=== PATIENT | female | born 1960 | race Caucasian/White ===

== ENCOUNTER → 2024-04-08 09:22 | Outpatient (REF) | payer OTHER, SELFPAY | LOC: RAD 09:22 | PROVIDERS: ATTENDING PHYSICIAN Internal Medicine Gastroenterology; FAMILY PHYSICIAN Family Medicine | DX: K50.812 Crohn's disease of both small and large intestine with intestinal obstruction (principal) | CPT/HCPCS: 74018 ==

== ENCOUNTER → 2024-04-25 16:22 | Outpatient (REF) | payer OTHER, SELFPAY | LOC: RAD 16:22 | PROVIDERS: ATTENDING PHYSICIAN Internal Medicine Gastroenterology; FAMILY PHYSICIAN Family Medicine | DX: K50.819 Crohn's disease of both small and large intestine with unspecified complications (principal); K91.2 Postsurgical malabsorption, not elsewhere classified | CPT/HCPCS: 74177; Q9967 ==

== ENCOUNTER 2024-06-13 13:18 | Inpatient (IN) | payer OTHER, SELFPAY ==
[2024-06-13] VITALS (9 sets, daily range): BP systolic 98–141; BP diastolic 63–86; BMI 23.0
--- NOTE | 2024-06-13 10:57 | ED.GENMED ---
History of Present Illness
General
Chief Complaint: Abnormal Lab Value
Source: patient
Exam Limitations: none
Time Seen by Provider: 06/13/24 10:43
Nursing documentation reviewed up to this point in time: agreed with
History of Present Illness
History of Present Illness:
64-year-old female past medical history of inflammatory bowel disease currently with ileostomy in place, indwelling right sided PICC line for fluid management presenting with concerns of low hemoglobin. Feels some general weakness fatigue that
slightly worse than usual. Stools been dark brown.F
Past History
Past History
ED Past Medical History: CAD, HTN, Other (Crohn's disease) and Other (Short gut syndrome)
ED Past Surgical History: Appendectomy, Bowel resection (In 1991 and 1995) and Other (Frequent ports, ileostomy surgery)
Social History
Tobacco: Non-smoker
Alcohol: Occasional
Drug: None
Personal:
Living: with family
Family History
Family History: Negative Diabetes, Hypertension, Early CAD, Asthma or Cancer
Review of Systems
Review of Systems
Allergies reviewed?: Yes
All Other Systems: ROS reviewed and negative except as documented in HPI and ROS
Phy Exam
Physical Exam
Physical Exam:
GENERAL: Alert , in no apparent distress
EYE: pupils equal and reactive
NECK: Supple, no significant adenopathy.
ENT: o/p clr, mmm.
CARDIAC: Regular rate and rhythm .
LUNGS: Clear breath sounds bilaterally, no acute respiratory distress, no wheezes/rales/rhonchi
ABDOMEN: Stool is dark brown guaiac positive, ileostomy in place to the left side of the abdomen no visible abnormalities of the surrounding area soft, without focal tenderness, no r/g, no cvat
NEUROLOGICAL: Alert and oriented, no focal neuro deficits
SKIN: Warm and dry, skin intact.
MUSCULOSKELETAL: No edema, well perfused.
PSYCH: Normal and appropriate interaction.
Course
Orders/Labs/Results
Orders:
Orders
06/13/24 10:49
Chest [CR Chest - 2 Views ] Urgent
Comment:
Reason For Exam: picc line rught arm
06/13/24 10:56
Type+Screen Urgent
Complete Blood Count/With Diff Urgent
Comprehensive Metabolic Panel Urgent
06/13/24 10:59
Pantoprazole [Protonix IV] 80 mg IV NOW STA
06/13/24 11:42
* Blood Bank Products Urgent
Blood Bank Products: *Packed RBC Leuko(PRBC's)
Quantity: 2
Transfuse Today: Yes
Reason: Anemia
Abnormal Lab Results
06/13/24
10:56
WBC 4.7 L 10^3/uL
(4.8-10.8)
RBC 3.17 L 10^6/uL
(4.20-5.40)
Hgb 5.8 L* g/dL
(12.0-16.0)
Hct 20.6 L* %
(37.0-47.0)
MCV 65.0 L fL
(81.0-99.0)
MCH 18.3 L pg
(27.0-31.0)
MCHC 28.2 L g/dL
(33.0-37.0)
RDW 16.1 H %
(11.5-14.5)
MPV 10.8 H fL
(7.4-10.4)
Chloride 108 H mmol/L
(98-107)
Glucose 103 H mg/dl
(70-99)
Calcium 8.3 L mg/dl
(8.4-10.2)
06/13/24 10:56
06/13/24 10:56
Vital Signs
Initial and Last Documented VS:
Initial Vital Signs
Temp Pulse Resp BP Pulse Ox
98.3 F 103 16 135/74 98
06/13/24 10:38 06/13/24 10:38 06/13/24 10:38 06/13/24 10:38 06/13/24 10:38
Last Documented Vital Signs
Temp Pulse Resp BP Pulse Ox
98.3 F 103 16 135/74 98
06/13/24 10:38 06/13/24 10:38 06/13/24 10:38 06/13/24 10:38 06/13/24 10:38
MDM/Problems Addressed
MDM/Problems Addressed:
64-year-old female presenting to the emergency department with concerns of low hemoglobin as an outpatient. Does of a history of inflammatory bowel disease. Here she has dark brown stool that is guaiac positive. She is not in any pain. Has some
vague generalized weakness and fatigue. No chest pain shortness of breath. Hemoglobin 5.8 here. Plan for 2 units of blood Protonix and admission for monitoring and assessment.
*Critical Care Note
Total Time (30-74mins, 75-104mins- exclusive of procedures): Not Applicable
ED Attending Note
-
Portions of this chart may have been created with voice recognition software.� Occasional wrong word or��sound alike� substitutions may have occurred due to the inherent limitations of voice recognition software.
Discharge Plan
Departure
Date of Disposition: 06/13/24
Time of Disposition: 11:47
Admit to: Med/Surg
Admit to doctor: Nehemias
Presentation/result/management discussed w/ accepting MD/DO: Hospitalist
Patient with high blood pressure during this ER visit?: No
Condition: Good
Covid-19: Not Applicable
Prescriptions:
No Action
omeprazole 20 MG capsule,delayed release(DR/EC)
40 mg PO BID
loratadine 10 MG tablet
10 mg PO DAILYPRN PRN (Reason: allergies)
multivitamin with folic acid [Tab-A-Shasha] 1 TABLET tablet
1 tab PO DAILY
loperamide 2 mg Tablet
2 mg PO QID
bupropion HCl [Wellbutrin] 100 mg Tablet
100 mg PO BID
calcium carbonate [Calcium 500] 500 mg calcium (1,250 mg) Tablet
500 mg PO DAILY
colestipol 1 gram Tablet
2 g PO TID
Interventions
Interventions:
*Risk Screen - Suicide Last Done: 06/13/24 10:38
*Neglect/Abuse Screening Last Done: 06/13/24 10:38
Discharge Date and Time
Print Language: MONEGASQUE
[2024-06-13 11:26] LABS: % Basophils 0.9 % (0-2); % Eosinophils 1.1 % (0-6); % Immature Granulocytes 0.2 % (0-0.5); % Lymphocytes 29.2 % (20.5-51.1); % Monocytes 9.2 % (1.7-9.3); % Neutrophils 59.4 % (42.2-75.2); ALT (SGPT) 17 U/L (0-35); AST (SGOT) 25 U/L (14-36); Absolute Eosinophils 0.1 10^3/uL (0-0.7); Absolute Lymphocytes 1.4 10^3/uL (1.2-3.4); Absolute Monocytes 0.4 10^3/uL (0.1-0.6); Absolute Neutrophils 2.8 10^3/uL (1.4-6.5); Albumin 3.6 g/dl (3.5-5.0); Alkaline Phosphatase 108 U/L (38-126); Blood Urea Nitrogen 11 mg/dl (7-17); Calcium 8.3 mg/dl (8.4-10.2); Carbon Dioxide 25 mmol/L (22-30); Chloride 108 mmol/L (98-107); Glucose 103 mg/dl (70-99); Hematocrit 20.6 % (37.0-47.0); Hemoglobin 5.8 g/dL (12.0-16.0); Mean Corp Hgb Conc. 28.2 g/dL (33.0-37.0); Mean Corpuscular Hgb 18.3 pg (27.0-31.0); Mean Platelet Volume 10.8 fL (7.4-10.4); Nucleated Red Blood Cells % 0 %; Platelet Count 305 10^3/uL (130-400); Potassium 4.3 mmol/L (3.5-5.1); Red Blood Cell Count 3.17 10^6/uL (4.20-5.40); Red Cell Dist. Width 16.1 % (11.5-14.5); Sodium 140 mmol/L (135-145); Total Bilirubin 0.4 mg/dl (0.2-1.3); Total Protein 7.2 g/dl (6.3-8.2); White Blood Cell Count 4.7 10^3/uL (4.8-10.8); eGFR > 60.00
[2024-06-13] MEDS: PROTONIX IV 80 MG IV (11:36)
--- NOTE | 2024-06-13 12:13 | HPS.HSE ---
Family Physician
-
Family Physician: Jasbir Guillaume
Chief Complaint
-
Weakness
History of Present Illness
Patient is 64 y/o female past medical history of Crohn's Disease with ileostomy who presents with weakness and low hemoglobin. Patient reports weakness, fatigue and increasing dyspnea on exertion for the past week. She get regular IVFs due to high
output ileostomy, and blood work revealed low hemoglobin. Patient reports output from ostomy has been darker than usual over the past week. She denies chest pains or dizziness.
Medical History
Past Medical History
Past Medical History: Reports Other
Additional Past Medical History:
Crohn's Disease
Short Bowel Syndrome
High Output Ostomy
Iron Deficiency Anemia
Past Surgical History: Reports Other
Additional Past Surgical History:
Total Colectomy with Ileostomy
Small Bowel Resection
Social History
Tobacco: Non-smoker
Alcohol: None
Family History
Family History: Not pertinent
Allergies / Home Medications
Allergies reflects when Allergies were last updated in [facility].
Home Medications with original date entered in [facility]
Allergy/Medication List:
Allergies
Allergy/AdvReac Type Severity Reaction Status Date / Time
No Known Allergies Allergy Verified 06/13/24 10:40
Home Medications
omeprazole 20 mg capsule,delayed release 40 mg PO BID Gastrointestinal issue 11/03/08
loratadine 10 mg tablet 10 mg PO DAILYPRN PRN allergies 01/10/19
multivitamin with folic acid 400 mcg tablet (Tab-A-Shasha) 1 tab PO DAILY Supplement 09/19/21
bupropion HCl 100 mg tablet 100 mg PO BID 06/13/24
calcium carbonate 500 mg PO DAILY 06/13/24
colestipol 1 gram tablet 2 g PO TID 06/13/24
loperamide 2 mg tablet 2 mg PO QID 06/13/24
Review of Systems
-
A 12 point ROS was completed and negative except as noted: Yes
Constitutional: Denies Fever or Chills
Respiratory: Reports Trouble Breathing; Denies Cough
Cardiac: Denies Chest Pain or Palpitations
Abdomen/GI: Reports Black Stools; Denies Abdominal Pain, Nausea or Vomiting
Physical Exam
Vital Signs
Vital Signs
Temp Pulse Resp BP Pulse Ox
97.9 F 88 20 117/86 99
06/13/24 11:51 06/13/24 11:51 06/13/24 11:51 06/13/24 11:51 06/13/24 11:51
Physical Exam
General: Comfortable, Conversant and Other (Appear slightly pale)
HEENT: NormoCephalic and Anicteric
Respiratory: Clear and Non Labored Respirations
Cardiac: S1/S2 and Regular Rhythm
GI: Soft, Non Tender and Ostomy
Rectal: Other (Heme-Positive output from ileostomy)
Musculoskeletal: No Clubbing, No Cyanosis and No Edema
Skin: Warm and Dry
Neuro: Awake, Alert, Oriented and Nonfocal/grossly intact
Psych: Calm
Laboratory Results
-
06/13/24 10:56
06/13/24 10:56
Laboratory Results
Total Bilirubin 0.4 mg/dl (0.2-1.3) 06/13/24 10:56
AST 25 U/L (14-36) 06/13/24 10:56
ALT 17 U/L (0-35) 06/13/24 10:56
Alkaline Phosphatase 108 U/L (38-126) 06/13/24 10:56
Data Reviewed
-
Lab Data: Labs Reviewed by me
Impression/Plan
-
Acute Blood Loss Anemia secondary to GI Bleed
-Check iron studies
-Transfuse 2 units PRBCs
-Trend serial Hgb
GI Bleed, likely upper in nature
-Consult GI
-Continue NPO/IVFs
-Continue Protonix 40mg IV BID
Crohn' Disease s/p Total Colectomy with Ileostomy, and Small Bowel Resection
Short Gut Syndrome with High Output Ostomy
-Monitor volume status - Patient received 2L NSS Daily via PICC as outpatient
-Hold colestipol and loperamide
DVT proph: SCDs
Code Status: Full Code
--- NOTE | 2024-06-13 12:44 | W.PN.UPDATE ---
Update Note
Progress Note Update
This is an addendum to the H&P written by Flaca Barbosa on 06/13/2024.� Patient seen and examined independently with PA.
64-year-old female past medical history of Crohn's disease status post ileostomy, short-bowel syndrome with high output ostomy with PICC line for 2 L IV fluids daily, history of food impaction, psoriasis, presenting with low hemoglobin.� Generalized
fatigue.� Dark brown stool.
EGD and colonoscopy from 2022 showed changes suggesting eosinophilic esophagitis but biopsy negative.� Later had a capsule endoscopy with the capsule still inside her.�
Hemoglobin of 5.8. Stools heme positive.
Concern for upper GI bleeding secondary to Crohn's disease with ileocolonic involvement previously.� 2 units of blood.� Protonix twice daily.� IV fluids.� Check iron studies, B12 and folate.� NPO.� GI consulted.
[2024-06-13] MEDS: NSS 500 IV (12:46)
[2024-06-13 14:41] LABS: Iron 24 ug/dl (37-170)
[2024-06-13 14:51] LABS: Percent Saturation 5 % (20-50); Total Iron Binding Capacity 435 ug/dl (265-497)
--- NOTE | 2024-06-13 15:32 | CON.GI ---
Addendum entered and electronically signed by Mesha Turcios MD 06/13/24 21:17:
I saw and examined the patient.
The RESIDENTIAL LEASING AGENT or PA's note was reviewed and I agree with the note.
Comment: 70-year-old female with history of Crohn's disease of small and large bowel for several years, has had multiple of abdominal surgeries with bowel resections, has had total proctocolectomy with ileostomy in 1991 and history of possible short
gut and gets IV hydration every night presenting with increasing shortness of breath and fatigue. She did report that her ostomy output was slightly darker but not black or red. She follows up with Dr. Taylor as an outpatient. She was noted to have
iron deficiency anemia in 2022, upper endoscopy at that time showed gastritis with active inflammation but otherwise no evidence of bleeding and ileoscopy did not show any evidence of active inflammation either. She did have small bowel capsule
study September 2023 with capsule retention, also noted on imaging in March 2024. She was noted to have iron deficiency since March 2024, has been on omeprazole 40 mg twice a day. No regular NSAID use. No evidence of active Crohn's and currently
not on any treatment.
Denies any abdominal pain, nausea or vomiting. No heartburn or trouble swallowing. She empties ileostomy 3-4 times a day and has not seen excessive output recently. She also has an appointment with Dr. Duque from [facility] this coming to
discuss regarding double-balloon enteroscopy to get the retained small bowel capsule out.
In the emergency room, hemoglobin noted to be 5.8 with microcytic indices, down from 8.5 in March.
-Iron deficiency anemia without overt bleeding but possibly slow chronic bleeding with history of underlying small bowel and large bowel Crohn's.
Getting 2 units of packed red blood cells. Monitor H&H and transfuse if needed if less than 7.0.
Continue IV PPI.
Given significant drop in hemoglobin, consider EGD/ileostomy Sunday. Patient does not want to wait in the hospital for that and wanted to see if this can be done as an outpatient. Will check schedule and contact patient regarding that.
Will give IV iron in the hospital.
Original Note:
Consultation
-
Date/Time Consultation Requested: 06/13/24 1229
Date/Time Consultation Performed: 06/13/24 1510
Requesting Provider: Flaca Vincent PA-C
Performing Provider: Dr. Turcios / Sapphire Whitt PA-C
Reason for Consultation: heme positive stools/acute blood loss anemia
Medical History
Chief Complaint / HPI
Chief Complaint: fatigue
History of Present Illness:
Ila is a 64 year old female with a past medical history of Crohn's of the small and large bowel (diagnosed in childhood, s/p multiple bowel resections and ultimately proctocolectomy in 1991, not currently on treatment) with permanent ileostomy,
with concern for short gut syndrome/high ostomy outputs on home IV fluids via PICC line who presented to the ER with outpatient labs showing severely low hemoglobin (5.8). She does complain of fatigue and increasing shortness of breath. She denies
any chest pain or abdominal pain. She does note that the ostomy output has been darker -- but denies black/tarry appearance, states it was more of a 'sheth' color. No mark blood. She took Advil once last week for backache but otherwise denies NSAID
use.
Patient is well-known to our GI practice and just saw Dr. Taylor recently in the office on 05/28/24. Patient had a video capsule endoscopy placed in September 2023 but the capsule did not pass, which was confirmed on imaging (both x-ray and CT scan). The CT
scan showed retained capsule, possibly broken into 3 pieces. Patient was then referred to Dr. Duque at [facility] for double enteroscopy to retrieve the capsule, and patient has consultation scheduled with him next week, 06/19. She has denied any
abdominal pain this whole time and continues to deny pain. No fever, chills, nausea, vomiting. Of note, patient did have a new microcytic anemia with Hgb noted to be 8.5 in March. Patient had EGD and enteroscopy with Dr. Taylor 12/2022, which was
negative, no active disease. Serum iron and %sat low. Normal TIBC and ferritin still pending.
Past Medical History
Past Medical History: GERD and Other (Crohn's of the small and large bowel (diagnosed in childhood, s/p multiple bowel resections and proctocolectomy in 1991, not currently on treatment) with permanent ileostomy, with concern for short gut
syndrome/high ostomy outputs)
Past Surgical History: Appendectomy and Bowel Resection (total colectomy with ileostomy)
Social History
Tobacco: Non-Smoker
Alcohol: None
Drug: None
Family History
Family History: Other (No family history of GI malignancies)
Allergies / Home Medications
Allergy/AdvReac Type Severity Reaction Status Date / Time
No Known Allergies Allergy Verified 06/13/24 10:40
�Medication �Instructions �Recorded
omeprazole 20 mg capsule,delayed 40 mg PO BID Gastrointestinal issue 11/03/08
release
loratadine 10 mg tablet 10 mg PO DAILYPRN PRN allergies 01/10/19
multivitamin with folic acid 400 1 tab PO DAILY Supplement 09/19/21
mcg tablet (Tab-A-Shasha)
bupropion HCl 100 mg tablet 100 mg PO BID 06/13/24
calcium carbonate 500 mg PO DAILY 06/13/24
colestipol 1 gram tablet 2 g PO TID 06/13/24
loperamide 2 mg tablet 2 mg PO QID 06/13/24
Review of Systems
-
History Source: Patient
All other systems: A 12 pt ROS was Negative except as stated above in HPI
Vital Signs
Temp Pulse Resp BP Pulse Ox
98.1 F 87 18 98/75 100
06/13/24 14:58 06/13/24 14:58 06/13/24 14:58 06/13/24 14:58 06/13/24 14:58
Physical Exam
Exam
General: Well Developed, Well Nourished and No Apparent Distress
Respiratory: Clear
Cardiac: Regular Rhythm
GI: Soft, Non Tender, Non Distended, Normal Bowel Sounds and Other (left-sided ostomy (heme positive dark brown stool))
Skin: Warm and Dry
Neuro: AO x 3
Psych: Calm
Results
WBC 4.7 10^3/uL (4.8-10.8) L 06/13/24 10:56
Hgb 5.8 g/dL (12.0-16.0) L* 06/13/24 10:56
Hct 20.6 % (37.0-47.0) L* 06/13/24 10:56
MCV 65.0 fL (81.0-99.0) L 06/13/24 10:56
Plt Count 305 10^3/uL (130-400) 06/13/24 10:56
Absolute Neuts (auto) 2.8 10^3/uL (1.4-6.5) 06/13/24 10:56
Sodium 140 mmol/L (135-145) 06/13/24 10:56
Potassium 4.3 mmol/L (3.5-5.1) 06/13/24 10:56
Chloride 108 mmol/L (98-107) H 06/13/24 10:56
Carbon Dioxide 25 mmol/L (22-30) 06/13/24 10:56
BUN 11 mg/dl (7-17) 06/13/24 10:56
Creatinine 0.7 mg/dL (0.6-1.0) 06/13/24 10:56
Calcium 8.3 mg/dl (8.4-10.2) L 06/13/24 10:56
Total Bilirubin 0.4 mg/dl (0.2-1.3) 06/13/24 10:56
AST 25 U/L (14-36) 06/13/24 10:56
ALT 17 U/L (0-35) 06/13/24 10:56
Alkaline Phosphatase 108 U/L (38-126) 06/13/24 10:56
Diagnostic Image Results:
04/25/24 CT abdomen/pelvis:
-Patient with Crohn's disease and history of multiple previous surgeries. There are dilated and nondilated loops of bowel present, with an ileostomy. There is extension of oral contrast through the ileostomy, with no evidence for high-grade
obstruction.
-No evidence of free intraperitoneal air.
-Streak artifact from 3 metallic densities within the central and left paramedian pelvis, unchanged from abdominal radiograph of April 08, 2024, and likely retained metallic fragments from capsule endoscopy camera.
Prior GI Procedures:
EGD: 12/2022: Dr Taylor
Esophageal mucosal changes suggestive of
eosinophilic esophagitis.
- Erythematous mucosa in the antrum.
- Bilious gastric fluid.
- A few gastric polyps. Resected and retrieved.
- Normal examined duodenum
(biopsies negative for EoE or celiac. +chronic active gastritis)
Colonoscopy: 12/2022: Dr Taylor
The entire examined ileum appeared normal. Biopsies were taken with a
cold forceps for histology. There was evidence of a widely patent end ileostomy found in the
surgical anastomosis. This was characterized by healthy appearing mucosa.
(small bowel biopsies negative)
Assessment / Plan
-
64 year old female with Crohn's of the small and large bowel s/p total colectomy with permanent ileostomy, with concern for short gut syndrome/high ostomy outputs on home IV fluids via PICC line who presented to the ER with outpatient labs showing
severely low hemoglobin (5.8) and symptoms of fatigue, weakness, dyspnea. Patient has a retained video capsule endoscopy (originally placed September 2023 and did not pass) with CT suggestive that the capsule possibly broke into 3 pieces. Patient has
follow-up scheduled next week with Dr. Duque at [facility] for double enteroscopy to retrieve the capsule, 06/19. She has no abdominal pain at all. No fever, chills, nausea, vomiting. Of note, patient did have a new microcytic anemia with Hgb noted to
be 8.5 in March. Patient had EGD and enteroscopy with Dr. Taylor 12/2022, which was negative, no active disease. She does note darker outputs, which are dark brown and heme positive. She received transfusion with 2 units PRBCs and has remained
hemodynamically stable.
IMPRESSION / PLAN:
Acute Blood Loss Anemia / heme-positive output
- Hgb on admission 5.8 (down from 8.5 in March), s/p transfusion 2 units PRBCs
- trend Hgb (repeat pending)
- transfuse if Hgb falls below 7
- continue IV fluids
- continue IV PPI
- consider endoscopy -- to discuss further with Dr. Turcios
Retained video capsule foreign body
- confirmed on imaging and concern the capsule may have fragmented
- patient has no abdominal discomfort
- scheduled for consultation with Dr. Duque ([facility]) for double balloon enteroscopy next week, 06/19
- to discuss further management with Dr. Turcios. Possibly expedite the DBE for retrieval of the capsule with Dr. Duque.
Crohn's s/p total colectomy with ileostomy
- h/o high outputs, concern for short gut syndrome
- continue IV fluids
We will follow.
-
-
Thank you for consultation and allowing me to participate in the patient's care. Please call the solar installation crew supervisor GI physician during the after hours with any questions or concerns.
[2024-06-13 17:03] LABS: Ferritin 4.2 ng/ml (11.1-264.0)
[2024-06-13 17:35] LABS: Folate 9.9 ng/ml (2.76-20); Vitamin B12 224 pg/ml (239-931)
--- NOTE | 2024-06-13 21:00 | PTCARENOTE ---
Pt. receiving 2nd unit PRBC's, pt. resting in bed, vs stable, call saxena within reach.
[2024-06-13] MEDS: PROTONIX IV 40 MG IV (23:12)
[2024-06-13] MEDS: WELLBUTRIN REGULAR RELEASE 100 MG PO (23:12)
[2024-06-14 01:39] LABS: Hematocrit 25.8 % (37.0-47.0)
[2024-06-14] MEDS: NSS 1000 IV ×2 (04:58→08:04)
[2024-06-14 05:58] LABS: Hematocrit 26.6 % (37.0-47.0); Hemoglobin 8.1 g/dL (12.0-16.0); Mean Corp Hgb Conc. 30.5 g/dL (33.0-37.0); Mean Corpuscular Hgb 21.8 pg (27.0-31.0); Mean Corpuscular Volume 71.5 fL (81.0-99.0); Mean Platelet Volume 10.7 fL (7.4-10.4); Platelet Count 245 10^3/uL (130-400); Red Blood Cell Count 3.72 10^6/uL (4.20-5.40); Red Cell Dist. Width 20.7 % (11.5-14.5); White Blood Cell Count 3.1 10^3/uL (4.8-10.8)
[2024-06-14 06:26] LABS: Blood Urea Nitrogen 10 mg/dl (7-17); Calcium 8.2 mg/dl (8.4-10.2); Carbon Dioxide 25 mmol/L (22-30); Chloride 104 mmol/L (98-107); Estimated Creatinine Clearance 55 ml/min; Glucose 82 mg/dl (70-99); Potassium 4.3 mmol/L (3.5-5.1); Sodium 137 mmol/L (135-145); eGFR > 60.00
--- NOTE | 2024-06-14 07:07 | W.PN.HOSP.TC ---
Today's Communication/Plan
-
see a/p
Assessment / Plan
Assessment / Plan
Physical Exam
General: no acute distress appears comfortable at this time
HEENT: NormoCephalic and Anicteric
Respiratory: Clear and Non Labored Respirations
Cardiac: S1/S2 and Regular Rhythm
GI: Soft, Non Tender and Ostomy
Musculoskeletal: No Clubbing, No Cyanosis and No Edema
Skin: Pallor
Neuro: AOx3 conversant coherent
Psych: Calm
64-year-old female past medical history of Crohn's disease status post ileostomy, short-bowel syndrome with high output ostomy with PICC line for 2 L IV fluids daily, history of food impaction, psoriasis, presenting with severe anemia Hgb 5.8.
Acute vs Chronic Blood Loss Anemia secondary to GI Bleed
-Iron studies appreciated Iron Deficiency Anemia, Iron supplementation provided
-Transfused 2 units PRBCs, responded well
-monitor H&H, hgb stable consistently 8 range since transfusion
-B12 deficiency noted, supplementation started.
-Continue Protonix 40mg IV BID
-GI consult appreciated NPO for EGD/ileoscopy
Crohn' Disease s/p Total Colectomy with Ileostomy, and Small Bowel Resection
Short Gut Syndrome with High Output Ostomy
-Monitor volume status - Patient received 2L NSS Daily via PICC as outpatient
-Hold colestipol and loperamide
DVT proph: SCDs
Code Status: Full Code
I spent a total of 50 minutes with the patient or on the floor. More than 50% of this time involved counseling and coordination of care.
Anticipated Discharge: 24 - 48 hours
Subjective/Interval History
-
Date of Service: June 14, 2024
No acute distress sitting up comfortably in bed. Overall reports feeling well. NPO awaiting Endoscopy/Ileoscopy
Objective Data
-
Labs:
Laboratory Results
06/13/24 06/14/2406/14/25
20:00 01:29 04:00
WBC
Hgb Cancelled 8.0 L D Cancelled
Hct Cancelled 25.8 L Cancelled
Plt Count
Sodium
Potassium
Chloride
Carbon Dioxide
BUN
Creatinine
Glucose
Calcium
06/14/24 06/14/24
05:37 09:30
WBC 3.1 L
Hgb 8.1 L Pending
Hct 26.6 L Pending
Plt Count 245
Sodium 137
Potassium 4.3
Chloride 104
Carbon Dioxide 25
BUN 10
Creatinine 0.8
Glucose 82
Calcium 8.2 L
Vital Signs:
Vital Signs
Temp Pulse Resp BP Pulse Ox
98.4 F 65 18 116/63 96
06/13/24 23:02 06/13/24 23:02 06/13/24 23:02 06/13/24 23:02 06/13/24 23:02
I&O
06/13/24 06/14/24 06/15/24
06:59 06:59 06:59
Intake Total 250 / 250
Balance 250 / 250
[2024-06-14 07:58] VITALS: BP 138/79
[2024-06-14] MEDS: WELLBUTRIN REGULAR RELEASE PO (07:59)
[2024-06-14] MEDS: PROTONIX IV 40 MG IV ×2 (08:00→19:52)
[2024-06-14] MEDS: NSS (PRESERVATIVE FREE) 10 ML IV ×2 (08:24→19:52)
[2024-06-14 12:18] VITALS: BP 132/62
[2024-06-14 12:34] LABS: Hemoglobin 8.3 g/dL (12.0-16.0)
[2024-06-14 12:54] VITALS: BP 127/72
[2024-06-14 13:56] VITALS: BP 127/68
[2024-06-14] MEDS: FERRLECIT 110 MG IV (15:01)
[2024-06-14 15:25] VITALS: BP 124/69
[2024-06-14] MEDS: VITAMIN B-12 1000 MCG PO (17:19)
[2024-06-14] MEDS: WELLBUTRIN REGULAR RELEASE 100 MG PO (19:50)
[2024-06-14] MEDS: NSS IV (19:55)
[2024-06-14 23:06] VITALS: BP 117/63
[2024-06-15 06:00] VITALS: BMI 22.9
[2024-06-15 06:30] LABS: Hematocrit 34.7 % (37.0-47.0); Hemoglobin 10.2 g/dL (12.0-16.0); Mean Corp Hgb Conc. 29.4 g/dL (33.0-37.0); Mean Corpuscular Hgb 21.3 pg (27.0-31.0); Mean Corpuscular Volume 72.4 fL (81.0-99.0); Mean Platelet Volume 10.7 fL (7.4-10.4); Platelet Count 332 10^3/uL (130-400); Red Blood Cell Count 4.79 10^6/uL (4.20-5.40); Red Cell Dist. Width 21.6 % (11.5-14.5); White Blood Cell Count 7.1 10^3/uL (4.8-10.8)
--- NOTE | 2024-06-15 06:41 | W.PN.HOSP.TC ---
Today's Communication/Plan
-
discharge
Assessment / Plan
Assessment / Plan
Physical Exam
General: no acute distress appears comfortable at this time
HEENT: NormoCephalic and Anicteric
Respiratory: Clear and Non Labored Respirations
Cardiac: S1/S2 and Regular Rhythm
GI: Soft, Non Tender, Ostomy present
Musculoskeletal: No Clubbing, No Cyanosis and No Edema
Skin: Pallor
Neuro: AOx3 conversant coherent
Psych: Calm
64-year-old female past medical history of Crohn's disease status post ileostomy, short-bowel syndrome with high output ostomy with PICC line for 2 L IV fluids daily, history of food impaction, psoriasis, presenting with severe anemia Hgb 5.8.
Acute vs Chronic Blood Loss Anemia secondary to GI Bleed
-Iron studies appreciated Iron Deficiency Anemia, Iron supplementation provided
-Transfused 2 units PRBCs, responded well
-monitor H&H, hgb stable consistently 8 range since transfusion
-B12 deficiency noted, supplementation started.
-Continue Protonix 40mg IV BID
-GI consult appreciated s/p EGD/ileoscopy no etiology for anemia found
-Hgb continues to improve
-Outpt Hematology Follow up recommended.
Crohn' Disease s/p Total Colectomy with Ileostomy, and Small Bowel Resection
Short Gut Syndrome with High Output Ostomy
-Monitor volume status - Patient received 2L NSS Daily via PICC as outpatient
-Hold colestipol and loperamide, ok to resume on discharge
Mild hyperkalemia
Mild Metabolic Acidosis
Mild Cr elevation/BOLA Cr 1.1, increased from 0.7 on admission
Hyperphosphatemia
-repeat labwork with primary care provider in 1 week of discharge recommended
DVT proph: SCDs
Code Status: Full Code
Stable for discharge home with outpatient follow up recommendations.
Total Time Preparing Discharge __40 minutes including examination of the patient, summary of the hospital stay, instructions for continuing care to all relevant caregivers; and preparation of discharge records, prescriptions, and referral
forms if necessary.
Anticipated Discharge: Today
Subjective/Interval History
-
Date of Service: June 15, 2024
No acute distress. Reports overall feeling well. Denies new acute issues. Looking forward to going home.
Objective Data
-
Labs:
Laboratory Results
06/15/24
05:50
WBC 7.1
Hgb 10.2 L D
Hct 34.7 L
Plt Count 332 D
Sodium Pending
Potassium Pending
Chloride Pending
Carbon Dioxide Pending
BUN Pending
Creatinine Pending
Glucose Pending
Calcium Pending
Vital Signs:
Vital Signs
Temp Pulse Resp BP Pulse Ox
98.4 F 72 16 117/63 95
06/14/24 23:06 06/14/24 23:06 06/14/24 23:06 06/14/24 23:06 06/14/24 23:06
I&O
06/13/24 06/14/24 06/15/24
06:59 06:59 06:59
Intake Total 250 / 250 1440 / 1440
Balance 250 / 250 1440 / 1440
[2024-06-15 06:45] LABS: Blood Urea Nitrogen 14 mg/dl (7-17); Calcium 9.5 mg/dl (8.4-10.2); Carbon Dioxide 15 mmol/L (22-30); Chloride 112 mmol/L (98-107); Estimated Creatinine Clearance 40 ml/min; Glucose 107 mg/dl (70-99); Magnesium 1.8 mg/dl (1.6-2.3); Potassium 5.3 mmol/L (3.5-5.1); Sodium 139 mmol/L (135-145); eGFR 56.81
[2024-06-15 07:04] VITALS: BP 96/70
--- NOTE | 2024-06-15 09:09 | CM ---
Addendum entered by Daniela Fonseca 06/15/24 13:58:
IMM benefit explained; form signed
Addendum entered by Daniela Fonseca 06/15/24 13:01:
Plan: Discharge to home today; will transport
Original Note:
Initial assessment completed
Pharmacy verified: [facility] @ [address] [place] [address]
Lives with and 2 adult children in [place] w/basement; 3 steps to enter; bath has stall shower
PLOF: independent with ambulation, ADLs; drives; retired
NO SNF utilization history
[facility] for IV therapy; PICC line RUE
DME: ileostomy supplies
will transport home
Plan: discharge to home when medically stable; CM will monitor for discharge needs
--- NOTE | 2024-06-15 09:30 | PTCARENOTE ---
Patient independently cares for her ileostomy. Ostomy stool drainage is contained within an opaque colored pouch. Patient verbalizes she has been emptying her ostomy directly into the toilet during her hospital stay. Instructed patient to report
ostomy drainage to nursing.
[2024-06-15] MEDS: VITAMIN B-12 1000 MCG PO (09:33)
[2024-06-15] MEDS: WELLBUTRIN REGULAR RELEASE 100 MG PO (09:33)
[2024-06-15] MEDS: PROTONIX IV 40 MG IV (09:33)
[2024-06-15] MEDS: NSS (PRESERVATIVE FREE) 10 ML IV (09:33)
[2024-06-15] MEDS: FLUSH (NSS) 2 FLUSH IV (09:39)
--- NOTE | 2024-06-15 12:33 | W.DCSUMMARY ---
Discharge Summary
Discharge Data
Date of Admission: 06/13/24
Date of Discharge: 06/15/24
-
Pending Results: Yes
Additional Pending Results:
biopsy results to be followed up with GI
Discharge Plan
-
Patient Disposition: Home (Routine Discharge)
Discharge Diagnosis/Procedures: Acute on Chronic Anemia Unclear Etiology
Iron deficiency anemia
Vitamin B12 deficiency anemia
Crohn's disease status post colectomy ileostomy
Mild Hyperkalemia
Mild Metabolic Acidosis
Mild Acute Kidney Injury
Hyperphosphatemia
Condition: Fair
Diet: Regular
Activity: As tolerated
Driving Restrictions: As prior to admission
Bathing Restrictions: None
Blood Work: Repeat CBC BMP Phosphorus level with primary care provider in 1 week of discharge.
Activity Restrictions/Additional Instructions:
Keep your appointment with GI Dr Duque and follow up with primary care provider in 1 week of discharge. Follow up with Hematology in 2-4 weeks of discharge.
Supplementations have been prescribed for Vitamin B12 and Iron Deficiencies
Please take medications as prescribed/recommended and follow up with primary care provider and/or other healthcare provider involved in your care for refills and/or further adjustment to your medication regimen as necessary.
Referrals:
Freddy Obrien, DO [Active] - in two to four weeks
Jasbir Guillaume DO [Family Provider] - in one week
Prescriptions:
New
cyanocobalamin (vitamin B-12) [Vitamin B-12] 1,000 mcg Tablet
1,000 mcg PO DAILY Qty: 30 0RF
ferrous sulfate 325 mg (65 mg iron) tablet
325 mg PO DAILY Qty: 30 0RF
Continued
omeprazole 20 MG capsule,delayed release(DR/EC)
40 mg PO BID
loratadine 10 MG tablet
10 mg PO DAILYPRN PRN (Reason: allergies)
multivitamin with folic acid [Tab-A-Shasha] 1 TABLET tablet
1 tab PO DAILY
loperamide 2 mg Tablet
2 mg PO QID
bupropion HCl 100 mg Tablet
100 mg PO BID
calcium carbonate 500 mg calcium (1,250 mg) Tablet
500 mg PO DAILY
colestipol 1 gram Tablet
2 g PO TID
Discharge Orders:
Discharge Patient (As Directed); Ordered 06/15/24
Ordered By: Fernandez López
Discharge Date and Time
Print Language: GABONESE
--- NOTE | 2024-06-15 12:45 | W.PN.GI.CBS2 ---
Today's Communication / Plan
-
Acute Blood Loss Anemia / heme-positive output
- Hgb on admission 5.8 (down from 8.5 in March), s/p transfusion 2 units PRBCs
-Upper endoscopy and ileoscopy without any evidence of active bleeding or stigmata of bleeding.
Hemoglobin stable and currently getting IV iron. Continue Protonix 40 mg p.o. twice a day
-She gets heme checks every 2 weeks and follows up with Dr. Wilkins, would continue to do that.
Retained video capsule foreign body
- confirmed on imaging and concern the capsule may have fragmented
- patient has no abdominal discomfort
- scheduled for consultation with Dr. Duque ([place]) for double balloon enteroscopy next week, 06/19. Suggest keeping the appointment.
Crohn's s/p total colectomy with ileostomy
- h/o high outputs, concern for short gut syndrome
- continue outpatient nightly IV fluids
Okay to discharge
Assessment / Plan
-
64 year old female with Crohn's of the small and large bowel s/p total colectomy with permanent ileostomy, with concern for short gut syndrome/high ostomy outputs on home IV fluids via PICC line who presented to the ER with outpatient labs showing
severely low hemoglobin (5.8) and symptoms of fatigue, weakness, dyspnea. Patient has a retained video capsule endoscopy (originally placed September 2023 and did not pass) with CT suggestive that the capsule possibly broke into 3 pieces. Patient has
follow-up scheduled next week with Dr. Duque at [place] for double enteroscopy to retrieve the capsule, 06/19. She has no abdominal pain at all. No fever, chills, nausea, vomiting. Of note, patient did have a new microcytic anemia with Hgb noted to
be 8.5 in March. Patient had EGD and enteroscopy with Dr. Taylor 12/2022, which was negative, no active disease. She does note darker outputs, which are dark brown and heme positive. She received transfusion with 2 units PRBCs and has remained
hemodynamically stable.
IMPRESSION / PLAN:
Acute Blood Loss Anemia / heme-positive output
- Hgb on admission 5.8 (down from 8.5 in March), s/p transfusion 2 units PRBCs
-Upper endoscopy and ileoscopy without any evidence of active bleeding or stigmata of bleeding.
Hemoglobin stable and currently getting IV iron. Continue Protonix 40 mg p.o. twice a day
-She gets heme checks every 2 weeks and follows up with Dr. Wilkins, would continue to do that.
Retained video capsule foreign body
- confirmed on imaging and concern the capsule may have fragmented
- patient has no abdominal discomfort
- scheduled for consultation with Dr. Duque ([place]) for double balloon enteroscopy next week, 06/19. Suggest keeping the appointment.
Crohn's s/p total colectomy with ileostomy
- h/o high outputs, concern for short gut syndrome
- continue outpatient nightly IV fluids
Okay to discharge
Subjective
Subjective
Date of Service: June 15, 2024
Patient without any complaints. No abdominal pain, nausea or vomiting. Tolerating diet.
Objective
Data Reviewed
Laboratory Data:
Laboratory Results
06/15/24 05:50
06/15/24 05:50
Laboratory Results
Phosphorus 6.0 mg/dl (2.5-4.5) H 06/15/24 05:50
Magnesium 1.8 mg/dl (1.6-2.3) 06/15/24 05:50
Total Bilirubin 0.4 mg/dl (0.2-1.3) 06/13/24 10:56
AST 25 U/L (14-36) 06/13/24 10:56
ALT 17 U/L (0-35) 06/13/24 10:56
Alkaline Phosphatase 108 U/L (38-126) 06/13/24 10:56
Vital Signs and I&O:
Vital Signs
Temp Pulse Resp BP Pulse Ox
98.3 F 85 18 96/70 97
06/15/24 07:04 06/15/24 07:04 06/15/24 07:04 06/15/24 07:04 06/15/24 07:04
I&O
06/14/24 06/15/24 06/16/24
06:59 06:59 06:59
Intake Total 250 / 250 1440 / 1440
Balance 250 / 250 1440 / 1440
Physical Exam
Physical Exam
GI: Soft, Non Distended and Non Tender
[2024-06-15 15:00] VITALS: BP 100/55
[2024-06-15] MEDS: FERRLECIT 110 MG IV (15:05)
[2024-06-15] MEDS: FLUSH (NSS) 1 FLUSH IV (15:06)
== END 2024-06-15 17:10 | disposition home or self-care (01) | DRG 386 ==
LOC: 4 WEST ACU 13:18
PROVIDERS: Physician Assistant; Physician Assistant Medical; ADMITTING PHYSICIAN Hospitalist; ATTENDING PHYSICIAN Internal Medicine; CONSULT PHYSICIAN Internal Medicine Gastroenterology; EMERGENCY PHYSICIAN Emergency Medicine; FAMILY PHYSICIAN Family Medicine
PROC: 30243N1 Transfusion of Nonautologous Red Blood Cells into Central Vein, Percutaneous Approach (ICD-10-PCS; 2024-06-13)
PROC: 0DB78ZX Excision of Stomach, Pylorus, Via Natural or Artificial Opening Endoscopic, Diagnostic (ICD-10-PCS; 2024-06-14)
PROC: 0DBB8ZX Excision of Ileum, Via Natural or Artificial Opening Endoscopic, Diagnostic (ICD-10-PCS; 2024-06-14)
DX: K50.811 Crohn's disease of both small and large intestine with rectal bleeding (principal); D62 Acute posthemorrhagic anemia; E87.20 Acidosis, unspecified; K90.829 Short bowel syndrome, unspecified; N17.9 Acute kidney failure, unspecified; L53.9 Erythematous condition, unspecified; K44.9 Diaphragmatic hernia without obstruction or gangrene; D50.9 Iron deficiency anemia, unspecified; K21.9 Gastro-esophageal reflux disease without esophagitis; Z86.018 Personal history of other benign neoplasm; D51.9 Vitamin B12 deficiency anemia, unspecified; E83.39 Other disorders of phosphorus metabolism; E87.5 Hyperkalemia; I10 Essential (primary) hypertension; I25.10 Atherosclerotic heart disease of native coronary artery without angina pectoris
CPT/HCPCS: 88305; 71046; 80048; 80053; 82607; 82728; 82746; 83540; 83550; 83735; 84100; 85014; 85018; 85025; 85027; 86850; 86900; 86901; 86920; 96374; 99285; J2916; P9016